=== PATIENT | male | born 1970 | race Caucasian/White ===

== ENCOUNTER 2017-06-18 17:01 | Emergency (ER) | payer SELFPAY ==
[~2017-06-18] VITALS: Ht 177.8 cm; Wt 88.6 kg
[2017-06-18] MEDS ORDERED: KETOROLAC TROMETHAMINE 60 MG/2 ML VIAL IM ONE (19:00)
[2017-06-18 20:46] VITALS: BP 137/74
== END 2017-06-18 20:57 | disposition home or self-care (01) ==
LOC: EMS 17:03
DX: S33.5XXA Sprain of ligaments of lumbar spine, initial encounter (principal); S73.102A Unspecified sprain of left hip, initial encounter; V03.90XA Pedestrian on foot injured in collision with car, pick-up truck or van, unspecified whether traffic or nontraffic accident, initial encounter; Y93.89 Activity, other specified; Y92.89 Other specified places as the place of occurrence of the external cause; Y99.8 Other external cause status
CPT/HCPCS: 72100; 73503; 96372; 99284; J1885